=== PATIENT | female | born 1945 | race Caucasian/White ===

== ENCOUNTER → 2019-04-22 | Outpatient (CLI) | payer MEDICARE, MEDICAID, SELFPAY ==
[2019-04-22 08:43] VITALS: PULSE 69; RESP 18; O2SAT 93; BMI 25.6
[2019-04-22 08:54] VITALS: BP 76/43; BMI 25.6
--- NOTE | 2019-04-22 09:50 | RAD_ITS ---
STUDY: X-RAY CHEST REASON FOR EXAM: Female, 74 years old. PICC line placement. TECHNIQUE: Single AP portable view of the chest. COMPARISON: None. FINDINGS: A right-sided PICC line catheter has been placed. The tip is in the midportion of the superior vena cava. Hyperinflation. There is no demonstrated pleural abnormality. Normal size heart. A dual-chamber pacemaker is seen. Normal mediastinum and erwin. Normal visualized pulmonary arteries. Normal visualized aortic arch and descending thoracic aorta. Normal visualized thoracic spine. Fusion in the lower cervical spine. There is no demonstrated abnormality of the visualized soft tissue structures of the upper abdomen. RAD/Chest 1 View IMPRESSION: The tip of the right PICC line catheter is in the midportion of the superior vena cava. Electronically Signed: Sesar Tomlinson, at 10:13 EDT , Service support ,
== END | disposition home or self-care (01) ==
PROVIDERS: Family Provider Family Medicine; PCP Family Medicine; Referring Provider Internal Medicine Hematology & Oncology; Visit Provider Internal Medicine Hematology & Oncology
DX: C52 Malignant neoplasm of vagina (principal); Z95.0 Presence of cardiac pacemaker
CPT/HCPCS: 36569; 71045

== ENCOUNTER 2021-09-12 08:16 | Day surgery (SDC) | payer MEDICARE, MEDICAID, SELFPAY ==
[2021-09-12] VITALS (8 sets, daily range): BP systolic 107–131; BP diastolic 58–77; PULSE 64–83; RESP 16; TEMP 36.1–36.4; O2SAT 93–100; BMI 28.3
[2021-09-12] MEDS: Lactated Ringers 1,000 ML 15 ML IV (08:40)
--- NOTE | 2021-09-12 09:43 | PCM.HP.BLA ---
History and Physical Date of Admission: 09/12/21 Intake Vital Signs 09/09/21 08:04 Height 5 ft 1.6 in Weight: 150 lb 4 oz BMI 27.8 BP 133/78 H Blood Pressure Location Rt brachial Position Sitting Respiration 18 Pulse 71 Pulse Source Monitor Temp 97.4 F L Temp Source Temporal Pulse Oximetry (%) 96 Oxygen Delivery Method room air Intake Visit Reasons: Temporal artery biopsy Chief Complaint: Temporal artery biopsy Email Production Specialist Required: No Accompanied by: Caregiver Is patient in pain?: No Allergies cyclobenzaprine Allergy (Verified 09/09/21 08:06) Unknown Medications apixaban 2.5 mg tablet 2.5 mg PO BID 09/09/21 [History Confirmed 09/09/21] carvedilol 3.125 mg tablet 3.125 mg PO BID 09/09/21 [History Confirmed 09/09/21] furosemide 20 mg tablet 20 mg PO DAILY 09/09/21 [History Confirmed 09/09/21] meclizine 25 mg tablet 25 mg PO TID 09/09/21 [History Confirmed 09/09/21] oxycodone-acetaminophen 5 mg-325 mg tablet 1 tab PO BID PRN tab 09/09/21 [History Confirmed 09/09/21] prednisone 20 mg tablet 20 mg PO BID 09/09/21 [History Confirmed 09/09/21] vitamins A,C,P-zwhk-afgzoq 14,320 unit-226 mg-200 unit capsule 1 cap PO BID 09/09/21 [History Confirmed 09/09/21] PFSH Medical History (Updated 09/09/21 @ 09:[address] Jh Perea MD) Arthritis Atrial fibrillation Blurred vision Brain aneurysm COPD (chronic obstructive pulmonary disease) Facial pain Heart disease History of back problems History of pacemaker Hypertension Stroke Surgical History (Updated 09/09/21 @ 08:04 by Edwige Dior) History of appendectomy History of brain surgery History of cholecystectomy History of colectomy History of foot surgery History of hysterectomy History of open reduction and internal fixation (ORIF) procedure Family History (Updated 09/09/21 @ 08:04 by Edwige Dior) Mother Heart disease Social History (Updated 09/09/21 @ 08:04 by Edwige Dior) Smoking Status: Never smoker alcohol intake: never substance use type: does not use HPI HPI HPI: MICHELINE CARREON, is a 76 F who presents to the office today for right facial and jaw pain. Patient reports that she has been having right vision blurriness as well as jaw and facial pain. She was started on steroids. She does not report much improvement. This is only affecting the right side of her face. ROS General General: Yes fatigue; No weight change, appetite, colon cancer, breast cancer or weakness HEENT HEENT: Yes difficulty swallowing; No eye injury, eye surgery, swollen glands or hoarseness Endo Endocrine: No thyroid disease, diabetes mellitus, thyroid cancer, Hair loss, heat intolerance or cold intolerance Skin Skin: Yes changing moles; No rash Breast Breast: No left breast lump, right breast lump, nipple discharge, breast pain, abnormal mammogram, abnormal US or breast enlargement Musc Musculoskeletal: Yes back problems, arthritis and rheumatoid arthritis; No gout or joint pain Cardio Cardiovascular: Yes pacemaker, heart disease, atrial fibrillation and high blood pressure; No murmur, heart attack, heart stent, palpitations, shortness of breat with exertion or chest pain Psych Psychiatric: No depression, anxiety or hearing voices Resp Respiratory: Yes shortness of breath, No sleep apnea, No cough, Yes COPD, No asthma, No emphysema and No wheezing Gastro Gastrointestinal: No abdominal pain, No nausea or vomiting, Yes diarrhea, Yes constipation, Yes blood in stool, No acid reflux, No hemorrhoids, No ulcers, No gallbladder problem and No black,tarry stools Beltran Hematologic: Yes blood thinners, No blood disorders, Yes bleeding, No anemia and Yes blood clots Neuro Neurologic: No system reviewed and no additional complaints, except as documented, No as per HPI, No abnormal gait, No abnormal hearing, No abnormal movements, No abnormal speech, No behavioral changes, No burning sensations, No confusion, No convulsions, No disequilibrium, No dizziness, No localized weakness, No frequent falls, No headache(s), No lack of coordination, No loss of vision, No memory loss, Yes numbness, No other visual disturbances, No radicular pain, No restless legs, No sensory deficit, No syncope, Yes tingling, No tremor(s), No weakness and No other (History stroke) Exam Const General: cooperative Orientation: alert and oriented x3 HENMT Head: normal to inspection Neck Neck: normal visual inspection and full ROM Chest Chest palpation & inspection: normal inspection of the chest Resp Effort & Inspection: normal respiratory effort Auscultation: clear to auscultation bilaterally Cardio Rate: regular rate Rhythm: regular rhythm GI Inspection: non-distended Palpation: soft and nontender Skin General: no rashes or lesions noted Neuro General: patient alert and patient oriented x3 Extrem General: full ROM Psych Appearance: grossly normal Mental Status: mental status grossly normal Assessment and Plan Assessment and Plan (1) Blurred vision: Status: Inactive Plan - Dr. Jh Perea MD: Patient is having right facial pain and blurred vision and was sent here for temporal artery biopsy. I discussed right temporal artery biopsy with the patient in detail as well as the risks including not limited to bleeding and infection. I also discussed facial nerve injury. I discussed holding her Eliquis and I will have her hold it for the next 2 days and perform this likely on or Thursday of this week. Jh Perea MD Pager: [facility] [address] [place] [address], [address] [place] [address] Office: The patient was seen and reexamined. The patient is complaining of an extremely painful rash on the left side of her posterior neck which appears to stop at the midline. This is suspicious for shingles. She has had shingles before on her right abdomen. The patient shingles are on the opposite side of her symptoms so I believe we should proceed with temporal artery biopsy but I have encouraged her to reach out to her primary care physician for treatment of this painful area.
--- NOTE | 2021-09-12 11:10 | TEM_PTH ---
PATIENT: MICHELINE CARREON LOC: [facility] [place] U[place][id number] AGE/SX: 76/F ROOM: RE09/12/[address]: Dr. Jh Perea MD : 1945 BED: DIS: 09/12/2021 SPEC #: [id number] RECD: 09/12/21 12:38 STATUS: NATY REValerie #: [id number] ARJUN: 09/12/21 11:[address]: Jh Perea DEPT: SURGICAL PATHOLOGY RECD BY: Leonila Fjaardo ENTERED: 09/12/21 13:12 SP TYPE: TEMPORAL OTHR DR: Dr. Arvind Jacob, Tissues: Temporal region Procedures: Elastin Stain (control) Special Stain Group II Surgery Specimen Level IV HEADER OPERATION: Temporal artery biopsy PRE-OP DIAGNOSIS: Blurred vision TISSUE SUBMITTED: Right temporal artery biopsy MICROSCOPIC DIAGNOSIS Right temporal artery, biopsy: Fibrofatty, neural and skeletal muscle. See comment. AM:dana 09/13/2021 COMMENT An artery is not identified. Clinical correlation is suggested. Elastin stain with matched control supports the above diagnosis. MICROSCOPIC DESCRIPTION Slides are reviewed. GROSS DESCRIPTION Received in fixative is one container labeled with the patient's name and designated right temporal artery. The specimen consists of an elongated fragment of holloway tissue measuring 2 cm in length and 0.2 cm in diameter. The specimen is totally submitted in one cassette. / AM:dana 09/12/21 TC:5 CPT: 09309, 91902
[2021-09-12] MEDS: Lubricating Jelly 60 GM Tube 30 GM (11:23)
[2021-09-12] MEDS: Lidocaine 1% (20 ml mdv) 20 ML Vial (11:23)
--- NOTE | 2021-09-12 12:02 | OP.PCM_ITS ---
Problems Associated Problem List Diagnoses (1) Blurred vision: Report of Operation Date of Procedure: 09/12/21 Pre-Operative Diagnosis: Blurred vision in the right eye and right facial pain Post-Operative Diagnosis: Same Surgery/Procedure Performed:: Right temporal artery biopsy Specimen's removed: Right temporal artery Description of Procedure: Patient was brought back to the operating room and MAC anesthesia was induced. The right temporal area was inspected with ultrasound and a small artery was identified that coursed upward toward the scalp. This was marked. Hair was clipped. The right presybeterian was prepped and draped in usual sterile fashion. Local anesthetic was injected. A small incision was made and deepened to the subcutaneous tissue. The stricture was identified and clipped and removed. It was very small and fragile. Next the area was irrigated and hemostasis was obtained using electrocautery. The skin was closed with interrupted 4-0 Monocryl suture as well as a running 4-0 Monocryl suture. Dermabond was applied. Patient was taken to PACU in stable condition. Admit VTE Documentation VTE Mechan Device Prophylaxis: SCD's
--- NOTE | 2021-09-12 12:03 | EX.PCM.DISCH ---
Discharge Instructions Procedure General Surgery Diet Discharge Diet: Light diet - advance as tolerated Activity Discharge Activity: May Not Drive (No driving for 1 week or while taking narcotic pain meds.) May shower in (days): 1 Lifting Restrictions: 10 pounds for 1 week Additional Activity Instructions:: Resume anticoagulation Thursday Dressing / Incision Call your doctor if your incision/area has: Continuous Slow Oozing, Sudden Increased Bleeding, Increased Pain/ Swelling, Increased Redness, Foul Smelling Discharge and Swelling at the incision site Call your doctor if you observe: Fever of 101 or Higher and Coldness, Increased Pain Suture Line Care: Avoid Pulling/Pushing and Avoid Pinching/Bending Cleanse incision/area with: Soap & Water Follow Up Care Please Follow Up With: Jh Perea MD When: Follow-up as needed, , physicians office will call with results Test Results: Test results from this visit will be discussed in further detail at your follow-up appointment, if applicable. Discharge Plan Admission Attending Provider: Jh Perea Primary Care Provider: Arvind Jacob Discharge Orders/Prescriptions Prescriptions: No Action Eliquis 2.5 mg tablet 2.5 mg PO BID RF: 0 prednisone 20 mg tablet 20 mg PO BID RF: 0 PreserVision AREDS 14,[id number] [id number] capsule 1 cap PO BID RF: 0 meclizine 25 mg tablet 25 mg PO TID RF: 0 carvedilol 3.125 mg tablet 3.125 mg PO BID RF: 0 furosemide 20 mg tablet 20 mg PO PRN PRN (Reason: Edema) RF: 0 oxycodone-acetaminophen [Percocet] 5-325 mg tablet 1 tab PO BID PRN (Reason: Pain) RF: 0 Breo Ellipta 100-25 mcg/dose Blister With Device 1 inh INHALATION DAILY RF: 0 Referrals / Follow Up: Arvind Jacob DO [Primary Care Provider] - Disposition Disposition (needs filled in before D/C Order can be placed): Home, Self Care
== END 2021-09-12 13:35 | disposition home or self-care (01) ==
LOC: SDC 08:17 → AC 08:20
PROVIDERS: PCP Family Medicine; Referring Provider Surgery; Visit Provider Surgery
PROC: (CPT 37609; principal; 2021-09-12 10:55)
DX: H53.8 Other visual disturbances (principal); R51.9 Headache, unspecified; M19.90 Unspecified osteoarthritis, unspecified site; I48.91 Unspecified atrial fibrillation; J44.9 Chronic obstructive pulmonary disease, unspecified; I11.9 Hypertensive heart disease without heart failure; Z79.02 Long term (current) use of antithrombotics/antiplatelets; Z79.899 Other long term (current) drug therapy
CPT/HCPCS: 37609; 87426; 88305; 88313; J7120